=== PATIENT | male | born 1990 | race Caucasian/White ===

== ENCOUNTER → 2017-03-23 | Outpatient (CLI) | payer OTHER | LOC: BRMIMAGING 17:04 | PROVIDERS: ATTEND Internal Medicine | DX: S67.192A Crushing injury of right middle finger, initial encounter (principal); W23.1XXA Caught, crushed, jammed, or pinched between stationary objects, initial encounter; Y92.810 Car as the place of occurrence of the external cause | CPT/HCPCS: 73140-PO ==